=== PATIENT | male | born 1990 | race African-American/Black ===

== ENCOUNTER 2017-12-05 09:39 | Emergency (ER) | payer MEDICAID | END 2017-12-05 10:56 | disposition home or self-care (01) | LOC: D.ER 09:39 | DX: K05.10 Chronic gingivitis, plaque induced (principal); F17.200 Nicotine dependence, unspecified, uncomplicated ==

== ENCOUNTER 2018-06-27 15:56 | Emergency (ER) | payer MEDICAID ==
[~2018-06-27] VITALS: Ht 167.6 cm; Wt 65.8 kg
[2018-06-27 16:03] VITALS: Ht 167.6 cm; Wt 65.8 kg
[2018-06-27] MEDS ORDERED: VALTREX1000 MG PO (16:48)
[2018-06-27 17:10] VITALS: BP 116/81
== END 2018-06-27 17:10 | disposition home or self-care (01) ==
LOC: D.ER 15:56
DX: B00.1 Herpesviral vesicular dermatitis (principal)